=== PATIENT | female | born 1935 | race Caucasian/White ===

== ENCOUNTER 2019-02-10 19:38 | Observation (INO) | payer MEDICARE, BC ==
[2019-02-10] MEDS ORDERED: hydrALAZINE 20 MG/ML VIAL ONE (20:26)
[2019-02-10] MEDS ORDERED: Metoclopramide HCl 10 MG/2 ML VIAL ONE (21:05)
[2019-02-10] MEDS ORDERED: Meclizine HCl 25 MG TAB ONE (21:05)
--- NOTE | 2019-02-11 00:20 | PDOC.FPRHP ---
- History of Present Illness Chief Complaint: Double vision History of Present Illness: 83 y/o F with PMHx HTN, CAD, arthritis presents as a transfer from [place] ED for double vision and elevated BP's. She reports that around 1pm she had sudden onset double vision. She describes it as only when both eyes are open, but if she closes either eye she just sees single vision. She says the images are directly next to each other. She denies any blurriness. She reports an on and off headache. She reports some dizziness. She has never had anything like this before. Denies N/V, weakness, numbness, LOC. ED Course: The patient was given 10mg Hydralazine due to elevated BP's in 210s/100s. She was given reglan 10mg, meclizine 25 mg, NS 500mL. - Allergies/Adverse Reactions Allergies Allergy/AdvReac Type Severity Reaction Status Date / Time Penicillins Allergy Verified 02/11/19 00:49 Sulfa (Sulfonamide Allergy Verified 02/11/19 00:49 Antibiotics) tetracycline [Tetracycline] Allergy Verified 02/11/19 00:49 - Home Medications Medication Instructions Recorded Confirmed Type Atenolol [Tenormin] 1 tab PO DAILY 02/11/19 02/11/19 History Colchicine [Colcrys] 0.6 mg PO DAILY 02/11/19 02/11/19 History Cyclobenzaprine [Flexeril] 10 mg PO HS 02/11/19 02/11/19 History Escitalopram Oxalate 1 tab PO DAILY 02/11/19 02/11/19 History Hydrochlorothiazide 1 tab PO DAILY 02/11/19 02/11/19 History Ibandronate Sodium 150 mg PO PRN PRN 02/11/19 02/11/19 History Levalbuterol Tartrate [Xopenex HFA 2 puff INH Q4HR PRN 02/11/19 02/11/19 History Inhaler] [place]-3 Fatty Acids/Fish Oil 1 cap PO DAILY 02/11/19 02/11/19 History [[place] 3 1,000 mg Softgel] Pravastatin Sodium 1 tab PO HS 02/11/19 02/11/19 History - History PMHx: 1. CAD s/p 2 stents 2. Arthritis 3. HTN PSHx: Stents x2, Hysterectomy, x2, Bladder repair, R knee replacement FHx: Father - CAD s/p [place] Social: Denies tobacco or drug use. Reports drinking 1-2 cocktails at night PCP: none - Review of Systems General: denies: fever/chills, fatigue Eyes: reports: vision changes. denies: eye pain ENT: reports: nasal congestion. denies: rhinorrhea Respiratory: denies: cough, shortness of breath Cardiovascular: reports: edema (RLE edema after a fall on her R hip about a month ago). denies: chest pain Gastrointestinal: denies: nausea, vomiting, diarrhea, abdominal pain Genitourinary: denies: dysuria, polyuria Skin: denies: rashes, lesions Musculoskeletal: denies: pain, tenderness Neurological: denies: numbness, syncope, weakness Psychological: denies: anxiety, depression - Vital signs BP: 162/80 (was 227/98 on presentation) HR: 67 RR: 19 Tmax: 97.8 Pox: 96% on RA Wt: 72.6 kg - Physical Exam Constitutional: NAD, awake, alert and oriented HEENT: normocephalic and atraumatic, PERRLA, EOMI, conjunctiva clear, no scleral icterus, grossly normal hearing, MMM, oropharynx clear Neck: supple, FROM, no LAD Heart: RRR, normal S1/S2, no murmurs/rubs/gallops, pulses present, other (RLE trace edema to mid-tibia, no calf swelling or tenderness, no palpable cord) Abdomen: soft, non-tender, bowel sounds present, no masses/distention Musculoskeletal: normal structure, normal tone Neurological: no focal deficit, CN II-XII intact, normal sensation Skin: no rash/lesions, good turgor, capillary refill <2 seconds Heme/Lymphatic: no unusual bruising or bleeding, no purpura Psychiatric: normal mood and affect, good judgment and insight, intact recent and remote memory FMR H&P: Results - Labs Result Diagrams: 02/11/19 04:24 Lab results: Laboratory Tests 02/10/19 02/10/19 02/10/19 15:27 15:27 15:27 WBC 6.6 Hgb 12.6 Hct 38.2 Plt Count 251 PT 13.1 INR 1.0 APTT 34.1 Sodium Potassium Chloride Carbon Dioxide Anion Gap BUN Creatinine Estimated GFR (MDRD) Glucose Calcium Total Bilirubin AST ALT Alkaline Phosphatase Troponin I Less than 0.010 02/10/19 15:27 WBC Hgb Hct Plt Count PT INR APTT Sodium 138 Potassium 3.8 Chloride 98 Carbon Dioxide 27 Anion Gap 17 BUN 10 Creatinine 0.62 Estimated GFR (MDRD) Greater than 90 Glucose 86 Calcium 9.8 Total Bilirubin 0.3 AST 29 ALT 21 Alkaline Phosphatase 61 Troponin I - EKG Interpretation EKG: NSR - rate 65, age-indeterminate inferior infarct, no acute ST/T wave changes - Radiology Interpretation CT scan - head Status: image reviewed by me, report reviewed by me Additional comment: No acute intracranial process Chest x-ray Status: image reviewed by me, report reviewed by me Additional comment: Borderline cardiomegaly, biapical pleural thickening, aortic atherosclerosis FMR H&P: A/P - Problem List (1) Hypertensive urgency Current Visit: Yes Status: Acute Code(s): I16.0 - HYPERTENSIVE URGENCY (2) Diplopia Current Visit: Yes Status: Acute Code(s): H53.2 - DIPLOPIA (3) TIA (transient ischemic attack) Current Visit: Yes Status: Acute Code(s): G45.9 - TRANSIENT CEREBRAL ISCHEMIC ATTACK, UNSPECIFIED (4) Hypertension Current Visit: Yes Status: Acute Code(s): I10 - ESSENTIAL (PRIMARY) HYPERTENSION Qualifiers: Hypertension type: essential hypertension Qualified Code(s): I10 - Essential (primary) hypertension (5) CAD (coronary artery disease) Current Visit: Yes Status: Acute Code(s): I25.10 - ATHSCL HEART DISEASE OF [place] CORONARY ARTERY W/O ANG PCTRS Qualifiers: Coronary Disease-Associated Artery/Lesion type: [place] artery [place] vs. transplanted heart: [place] heart Associated angina: without angina Qualified Code(s): I25.10 - Atherosclerotic heart disease of [place] coronary artery without angina pectoris (6) Arthritis Current Visit: Yes Status: Acute Code(s): M19.90 - UNSPECIFIED OSTEOARTHRITIS, UNSPECIFIED SITE - Plan 83 y/o F presents with sudden onset diplopia 1. Diplopia, rule-out TIA vs HTN Emergency Patient presents with diplopia that was in the setting of BP's in the 220s/ 100s. Her HTN was treated with 10mg Hydralazine in the ED, but her diplopia has continued. CT brain normal. -MRI brain -Fall precautions and up with assist -Meclizine prn dizziness 2. HTN Urgency BP's initially in 220s/100s, unsure if diplopia 2/2 to this. Will treat as hypertensive urgency at this time. BP's improved to 160s/80s after 10mg IV hydralazine. Trop negative, EKG showed no acute changes. -Restart home atenalol and HCTZ -Hydralazine prn to keep SBP between 160-180. Do not want BP to decrease too much in first 24 hours for stroke protection, but would like to keep below 180 for concern that BP's might have contributed to her diplopia. 3. Concern for TIA Patient may have TIA vs CVA causing ocular symptoms. CT head negative. -Will check FLP -Brain MRI -Aspirin -Atorvastatin 40mg 4. CAD s/p 2 stents -Will start ASA -Increase statin to high intensity -Continue atenolol 5. HTN -Treat as above Code Status: Full VTE ppx: SCD's Disposition/LOS: Obs on stroke Length of stay likely less than 48 hours Addendum - Attending - Attending Attestation Date/Time: 02/11/19 0633 I personally evaluated the patient and discussed the management with Dr. Farnsworth at [facility] of admission on 02/10/2019. I agree with the History, Examination, Assessment and Plan documented above with any addition or exceptions noted below.
[2019-02-11] MEDS ORDERED: Ondansetron ODT 4 MG TAB PO PRN (00:36)
[2019-02-11] MEDS ORDERED: hydrALAZINE 20 MG/ML VIAL SLOW IVP PRN (00:36)
[2019-02-11 00:45] VITALS: BMI 31.6
[2019-02-11] MEDS ORDERED: Ondansetron ODT 4 MG TAB SL PRN (00:45)
[2019-02-11] MEDS ORDERED: Acetaminophen 325 MG TAB PO PRN (00:45)
[2019-02-11] MEDS ORDERED: Ondansetron PF 4 MG/2 ML Vial IVP PRN (00:45)
[2019-02-11] MEDS ORDERED: Meclizine HCl 12.5 MG TAB PO PRN (00:59)
[2019-02-11] MEDS: hydrALAZINE 20 MG/ML VIAL SLOW IVP PRN ×2 (01:12→09:41)
[2019-02-11 05:24] LABS: Phosphorus 3.2 mg/dL (2.3-4.7)
[2019-02-11 05:27] LABS: Anion Gap 12 mmol/L (10-20); BUN (Urea Nitrogen) 10 mg/dL (9.8-20.1); Calc. Creatinine Clearance 82 mL/min (70-130); Calcium 9.6 mg/dL (7.8-10.44); Carbon Dioxide 28 mmol/L (23-31); Cardiac Risk 2.3 (Less than 4.5); Chloride 98 mmol/L (98-107); Cholesterol 174 mg/dl (< 200 Desired); Estimated GFR-MDRD Greater than 90; Glucose 107 mg/dL (83-110); HDL Cholesterol 76 mg/dL (>60 Neg Risk); LDL Cholesterol, Calculated 79 mg/dL; Potassium 3.4 mmol/L (3.5-5.1); Sodium 135 mmol/L (136-145); Triglycerides 97 mg/dL (Less than 150)
[2019-02-11] MEDS ORDERED: Lorazepam 0.5 MG TAB PO PRN (07:33)
[2019-02-11] MEDS: Atenolol 25 MG TAB PO SCH (08:14)
[2019-02-11] MEDS: Colchicine 0.6 MG TAB PO SCH (08:14)
[2019-02-11] MEDS: Escitalopram Oxalate 10 mg Tablet PO SCH (08:15)
[2019-02-11] MEDS: Hydrochlorothiazide 25 MG TAB PO SCH (08:15)
[2019-02-11] MEDS: Aspirin 81 mg Enteric Coated Tablet PO SCH (08:15)
--- NOTE | 2019-02-11 11:22 | ULT ---
EXAM: Carotid vascular duplex with color and spectral Doppler imaging: HISTORY: Acute onset of diplopia COMPARISON: None FINDINGS: Bilateral visual plaque evidence for coronary artery vascular disease. Right ICA: PSV: 175 cm/s EDV: 58 cm/s ICA/CCA ratio: 1.6 Left ICA: PSV: 158 cm/s EDV: 39 cm/s ICA/CCA ratio: 1.0 Antegrade flow is seen in both vertebral arteries.. IMPRESSION: Evidence for moderate (50-69%) stenosis of the right and left proximal internal carotid arteries. Consider follow-up CT angiogram neck for further assessment.
--- NOTE | 2019-02-11 12:04 | MRI ---
MRI Brain WO Con: 02/11/2019 12:36 AM CLINICAL HISTORY: TIA, diplopia, CVA. COMPARISON: None. FINDINGS: Extra axial spaces: Mild CSF prominence due to volume loss. Hemorrhage: None. Ventricular system: Mild compensatory dilatation. Basal cisterns: Normal. Cerebral parenchyma: Microvascular ischemic changes. Midline shift: None. Cerebellum: Normal. Brainstem: Normal. Paranasal sinuses:Clear IMPRESSION: No acute territorial infarction or mass effect. Mild chronic microvascular ischemic disease
--- NOTE | 2019-02-11 13:16 | PDOC.FM ---
- Subjective Subjective: Patient doing well this morning. Still with diplopia, unchanged. Denies f/c/n/v/weakness/numbness/dysarthria/dysphagia - Objective MAR Reviewed: Yes Vital Signs & Weight: Vital Signs (12 hours) Temp Pulse Resp BP Pulse Ox 02/11/19 10:12 158/72 H 02/11/19 09:41 73 02/11/19 08:14 73 02/11/19 08:00 98.1 F 84 18 185/85 H 96 02/11/19 04:28 98.4 F 73 16 154/68 H 96 02/11/19 01:25 74 178/80 H Weight Weight 73.437 kg I&O: 02/10/19 02/11/19 02/12/19 06:59 06:59 06:59 Intake Total 425 Balance 425 Result Diagrams: 02/11/19 04:24 Phys Exam - Physical Examination HEENT: PERRLA Neck: no nodes, no JVD Respiratory: no wheezing, no rales, clear to auscultation bilateral Cardiovascular: RRR (3/6 ALFREDA at RUSB) Gastrointestinal: soft, non-tender, positive bowel sounds Musculoskeletal: no edema, pulses present Neurological: non-focal, normal sensation, moves all 4 limbs (CN II-XII intact and symmetric, I am unable to appreciate any nystagmus or dysconjugate gaze) Psychiatric: normal affect, A&O x 3 Dx/Plan (1) Hypertensive emergency Code(s): I16.1 - HYPERTENSIVE EMERGENCY Status: Acute (2) CAD (coronary artery disease) Code(s): I25.10 - ATHSCL HEART DISEASE OF [place] CORONARY ARTERY W/O ANG PCTRS Status: Acute Qualifiers: Coronary Disease-Associated Artery/Lesion type: [place] artery [place] vs. transplanted heart: [place] heart Associated angina: without angina Qualified Code(s): I25.10 - Atherosclerotic heart disease of [place] coronary artery without angina pectoris (3) Diplopia Code(s): H53.2 - DIPLOPIA Status: Acute - Plan Plan: HTN emergency -lower to goal over the next days pending MRI Diplopia -c/f posterior/VB stroke -MRI and angio pending -ASA, lovenox, statin -r/o other causes CAD -secondary prevention
--- NOTE | 2019-02-11 13:37 | CT ---
CTA OF THE HEAD WITH AND WITHOUT CONTRAST WITH 3D REFORMATTED IMAGING CTA OF THE NECK WITH AND WITHOUT CONTRAST WITH 3D REFORMATTED IMAGING: Date: 02/11/19 INDICATION: Dizziness with double vision. FINDINGS: CTA HEAD: No definite acute infarct, hemorrhage, or hydrocephalus is present. The septum pellucidum and third v entricle are midline. The skull and extracranial soft tissues appear within normal limits. No hemodynamically significant stenosis, occlusion, or aneurysmal formation is evident. No area of ab normal enhancement is noted. There is moderate calcification involving the carotid siphons and suprac linoid ICAs bilaterally. CTA NECK: There is 50% luminal caliber narrowing involving the proximal right internal carotid artery. There is 50% luminal caliber narrowing involving the proximal left internal carotid artery. The remaining vis ualized cervical segments are widely patent. There is moderate at least 50% narrowing involving the o rigin of the right common carotid artery from the brachiocephalic artery; however, the extent of the atherosclerotic calcification near the origin slightly limits the evaluation of the luminal caliber. The right vertebral artery is fully patent throughout its course. The left vertebral artery is fully patent throughout its course. Lung apices are clear. No enlarged lymph nodes are noted. There is a sm all hypodensity within the left thyroid gland. The parotid and submandibular glands are normal appear ing. Dental amalgam slightly limits evaluation of the oral cavity. The [place] lenses have been replac ed. The visualized aerodigestive tract appears within normal limits. There is a small subchondral cys t-like abnormality involving the odontoid. No acute osseous abnormality is evident. IMPRESSION: 1. 50% luminal caliber narrowing involving the proximal internal carotid arteries bilaterally. 2. Moderate at least 50% luminal caliber narrowing involving the origin of the right common carotid artery from the brachiocephalic artery. 3. Vertebral arteries are widely patent throughout their course. 4. No hemodynamically significant stenosis, occlusion, or aneurysmal formation seen within the intra cranial vessels. POS: JERRY
[2019-02-11] MEDS ORDERED: Iopamidol 370 76% 50 ML VIAL FS ONE (16:50)
--- NOTE | 2019-02-11 18:32 | CON ---
DATE OF CONSULTATION: 02/11/2019 CONSULTING PHYSICIAN: [facility]. IMPRESSION: Double vision, possibly secondary to myasthenia gravis. PLAN: 1. Laboratory studies as ordered. 2. Mestinon 60 mg twice a day. 3. Office followup. HISTORY OF PRESENT ILLNESS: Ms. Corado is an 83-year-old woman, who presented with acute onset of double vision. She reported some slight discomfort above the brow, but otherwise had no other complaints. She has not noticed any weakness of her extremities. She has not had any alteration of speech. She has noticed that the double vision is not consistently there. She had initial workup with CT scan and CTA, which were both unremarkable. Her carotid ultrasound shows about 50% stenosis bilaterally. Her MRI of the brain showed some minimal small vessel ischemic changes that were chronic, no acute abnormalities. PAST MEDICAL HISTORY: Hypertension and hyperlipidemia. SOCIAL HISTORY: She is . She does not smoke or drink. MEDICATIONS: Medication list was reviewed. FAMILY HISTORY: Otherwise unremarkable. REVIEW OF SYSTEMS: Ten system review of systems is otherwise negative. PHYSICAL EXAMINATION: GENERAL: She is a well-nourished elderly lady in no distress. VITAL SIGNS: Stable. She has been afebrile. HEENT: Pupils are equal and reactive. Conjunctivae clear. Oropharynx clear. NECK: Supple. No lymphadenopathy. EXTREMITIES: No cyanosis, clubbing, or edema. NEUROLOGIC: She was alert and appropriate. Her speech is fluent and clear. Cranial nerves were intact, although there seemed to be some variable esotropia of the left eye. Motor exam showed good strength in all four extremities. Sensation was intact to touch. She can stand and walk independently. There was no tremor or dysmetria present. IMAGING: Reviewed. SUMMARY: Given the presentation of painless double vision, it is unlikely to be an ischemic sixth nerve palsy. Thyroid eye disease would be a consideration as well as myasthenia gravis. I will get the lab work going and follow up with her in the office. Job ID: [id number]
[2019-02-11] MEDS ORDERED: Atorvastatin Calcium 40 MG TAB PO SCH (21:00)
[2019-02-11] MEDS ORDERED: Atorvastatin Calcium 20 MG TAB PO SCH (21:00)
[2019-02-11] MEDS ORDERED: Non-Formulary Item 1 EACH (Pravastatin Sodium [Pravastatin Sodium] 1 TAB) PO SCH (21:00)
[2019-02-11] MEDS ORDERED: Cyclobenzaprine 10 MG TAB PO SCH (21:00)
[2019-02-12 05:39] LABS: Anion Gap 12 mmol/L (10-20); BUN (Urea Nitrogen) 8 mg/dL (9.8-20.1); Calc. Creatinine Clearance 79 mL/min (70-130); Calcium 9.7 mg/dL (7.8-10.44); Carbon Dioxide 29 mmol/L (23-31); Chloride 97 mmol/L (98-107); Estimated GFR-MDRD 89; Glucose 111 mg/dL (83-110); Potassium 3.3 mmol/L (3.5-5.1); Sodium 135 mmol/L (136-145)
--- NOTE | 2019-02-12 06:03 | PDOC.FM ---
- Subjective Subjective: Linda Corado seen at bedside this morning. She is doing well, she continues to have double vision but feels like it is improving slightly. Denies any acute events overnight. Denies headaches, eye pain, chest pain, dyspnea, palpitations , n/v. She was seen by Neurology yesterday. Tests to r/o myasthenia gravis were ordered and she was started on pyridostigmine. She was instructed to follow up with Dr. Franco in 7 days. - Objective MAR Reviewed: Yes Vital Signs & Weight: Vital Signs (12 hours) Temp Pulse Resp BP Pulse Ox 02/12/19 04:02 98.8 F 84 14 156/67 H 94 L 02/11/19 23:42 98.6 F 79 12 171/79 H 96 02/11/19 20:00 98.6 F 89 12 147/66 H 94 L Weight Weight 73.437 kg I&O: 02/10/19 02/11/19 02/12/19 06:59 06:59 06:59 Intake Total 425 1400 Balance 425 1400 Result Diagrams: 02/12/19 04:24 Phys Exam - Physical Examination Constitutional: NAD HEENT: PERRLA, moist MMs, sclera anicteric variable esotropia of left eye Neck: supple, full ROM Respiratory: no wheezing, no rales, no rhonchi, clear to auscultation bilateral Cardiovascular: RRR, no significant murmur Gastrointestinal: soft, non-tender, no distention Musculoskeletal: no edema, pulses present Neurological: non-focal, normal sensation, moves all 4 limbs Psychiatric: normal affect, A&O x 3 Skin: no rash Dx/Plan (1) Diplopia Code(s): H53.2 - DIPLOPIA Status: Acute (2) Hypertensive emergency Code(s): I16.1 - HYPERTENSIVE EMERGENCY Status: Resolved (3) CAD (coronary artery disease) Code(s): I25.10 - ATHSCL HEART DISEASE OF [place] CORONARY ARTERY W/O ANG PCTRS Status: Chronic Qualifiers: Coronary Disease-Associated Artery/Lesion type: [place] artery [place] vs. transplanted heart: [place] heart Associated angina: without angina Qualified Code(s): I25.10 - Atherosclerotic heart disease of [place] coronary artery without angina pectoris (4) Hypertension Code(s): I10 - ESSENTIAL (PRIMARY) HYPERTENSION Status: Acute Qualifiers: Hypertension type: essential hypertension Qualified Code(s): I10 - Essential (primary) hypertension - Plan Plan: HTN emergency - resolved - Will slowly continue to lower BP - will need outpatient follow up closely with PCP - d/c today Diplopia - CTA showed 50% stenosis of bilateral internal carotid arteries - MRI brain negative - Neurology, Dr. Franco, consulted, appreciate recs - Ordered tests to r/o Myasthenia gravis - Will follow up with Neurology as outpatient - starting pyridostigmine per neuro CAD - secondary prevention
[2019-02-12 07:41] VITALS: BP 177/79; TEMP 98.3
[2019-02-12] MEDS: Hydrochlorothiazide 25 MG TAB PO SCH (08:05)
[2019-02-12] MEDS: Aspirin 81 mg Enteric Coated Tablet PO SCH (08:05)
[2019-02-12] MEDS: Escitalopram Oxalate 10 mg Tablet PO SCH (08:05)
[2019-02-12] MEDS: Colchicine 0.6 MG TAB PO SCH (08:05)
[2019-02-12] MEDS: Atenolol 25 MG TAB PO SCH (08:05)
--- NOTE | 2019-02-12 10:57 | PRG ---
DATE OF SERVICE: 02/12/2019 SUBJECTIVE: Ms. Corado is a very pleasant, alert, oriented 83-year-old white female, who was admitted with diplopia. She obviously has some right gaze drift with her right eye as a cause of her diplopia. Working diagnosis at this point is possible myasthenia gravis. The patient was seen by Dr. Franco, who will see her as a followup as well. Her CT showed no evidence of significant vascular occlusion. Her brain MRI showed no acute infarction or mass effect. There was mild chronic microvascular ischemic disease. In the event, she is stable and ready for discharge to follow up with Dr. Franco. Job ID: [id number]
--- NOTE | 2019-02-13 08:41 | DIS ---
DATE OF ADMISSION: 02/11/2019 DATE OF DISCHARGE: 02/12/2019 RESIDENT PHYSICIAN: Emil Thompson MD. ADMITTING ATTENDING: Dr. Jorge Fuentes. DISCHARGE ATTENDING: Dr. Morgan Villarreal. CONSULTS: Neurology, Dr. Franco on 02/11/2019. PROCEDURES: 1. CT angio of the head and neck, impression; 50% luminal caliber narrowing involving the proximal internal carotid arteries bilaterally. Moderate at least 50% luminal caliber narrowing involving the origin of the right common carotid artery from the brachiocephalic artery. Vertebral arteries are widely patent throughout their course. No hemodynamically significant stenosis, occlusion, or aneurysmal formation seen within the intracranial vessels. 2. Brain MRI from 02/11/2019, impression; no acute territorial infarction or mass effect. Mild chronic microvascular ischemic disease. 3. Carotid artery Doppler study from 02/11/2019, impression; evidence for moderate 50% to 69% stenosis of the right and left proximal internal carotid arteries. Consider followup CT angiogram of neck for further assessment. 4. Echocardiogram from 02/11/2019, summary; ejection fraction is visually estimated at 60% to 65%. Normal size left atrium. Left ventricular size is normal. Impaired relaxation compatible with diastolic dysfunction. PRIMARY DIAGNOSES: 1. Diplopia. 2. Hypertensive emergency. SECONDARY DIAGNOSES: 1. Coronary artery disease. 2. Hypertension. DISCHARGE MEDICATIONS: Resume home medications including; 1. Ibandronate sodium 150 mg p.o. p.r.n. 2. Escitalopram oxalate 10 mg p.o. daily. 3. Colchicine 0.6 mg p.o. daily. 4. Atenolol 25 mg p.o. daily. 5. Levalbuterol tartrate 2 puffs INH q.4 hours p.r.n. 6. Cyclobenzaprine 10 mg p.o. h.s. New medications include; 1. Aspirin 81 mg p.o. daily. 2. Atorvastatin 40 mg p.o. h.s. 3. Mestinon 60 mg p.o. b.i.d. HISTORY OF PRESENT ILLNESS/HOSPITAL COURSE: Linda Corado is an 83-year-old female with a past medical history of hypertension, coronary artery disease, and arthritis, who presented as a transfer from a [place] ED for double vision and elevated blood pressure. She reports that around 1:00 p.m., she had sudden onset double vision, describes it as only when both eyes are opened, but if she closed the either eye, she just used single vision. She states these images are directly next to each other. She denies any blurriness. She reports an off and on headache. Reported some dizziness. This is the first time, she has never experienced these symptoms. She denies any nausea, vomiting, weakness, numbness, or loss of consciousness. In the ED, she was given 10 mg of hydralazine due to elevated blood pressures in the 210s/100s. She was given Reglan 10 mg, meclizine 25 mg, 500 mL normal saline bolus. Initial vitals on presentation were blood pressure 227/98, which improved to 162/80 at the time of admission; heart rate of 67, respiratory rate of 19, T-max 97.8, pulse ox 96% on room air. Physical exam was normal. There are no focal deficits. Cranial nerves 2 through 12 are intact. She had normal sensation and strength. Extraocular muscles were intact. Pupils were equal, round, reactive to light and accommodation bilaterally. She had some variable esotropia in the left eye. Initial labs were white blood cell count 6.6, hemoglobin 12.6, hematocrit 38.2, platelets 251. Sodium 135, potassium 3.4, chloride 98, bicarb 28, BUN 10, creatinine 0.61, glucose of 107. EKG showed normal sinus rhythm, rate of 65. No acute ST or T wave changes. CT of the head showed no acute intracranial process. Chest x-ray showed borderline cardiomegaly, biapical pleural thickening, and aortic atherosclerosis. The patient was admitted for diplopia, rule out TIA versus hypertensive emergency. She has CT angiogram of the head and neck, brain MRI, and echo. Results were as above. The patient was restarted on home antihypertensive medications and was given p.r.n. hydralazine. Blood pressures remained mildly elevated through hospital stay, but with a goal of decreasing them slightly over time. In regards to the patient's double vision, these symptoms continued throughout her hospital stay showing maybe slight improvement per the patient. It was decided that Neurology was to be consulted. Dr. Franco saw the patient and had concern for myasthenia gravis. He ordered labs to rule out myasthenia gravis and decided to start the patient on pyridostigmine with instructions to follow up with him as an outpatient in 1 week. The patient was cleared for discharge on 02/12/2019 with instructions to follow up with Dr. Franco and establish care with primary care provider within 1 week. DISPOSITION: Stable. DISCHARGE INSTRUCTIONS: 1. Location, home. 2. Diet, heart healthy. 3. Activity, as tolerated. Activity restrictions; the patient was instructed not to drive or operate machinery with double vision. 4. Follow up with Dr. Franco in 7 days and with primary care provider in 1 week. Job ID: [id number]
--- NOTE | 2019-02-15 13:53 | EKG ---
Test Reason : Blood Pressure : / mmHG Vent. Rate : 065 BPM Atrial Rate : 065 BPM P-R Int : 174 ms QRS Dur : 084 ms QT Int : 422 ms P-R-T Axes : 049 000 023 degrees QTc Int : 438 ms Normal sinus rhythm Cannot rule out Inferior infarct , age undetermined Abnormal ECG Confirmed by PILI PONCE DO ([id number]), international editorial producer WILMER ZARAGOZA ([id number]) on 02/15/2019 1:53:20 PM Referred By: Confirmed By:PILI PONCE DO
== END 2019-02-12 11:25 | disposition home or self-care (01) ==
LOC: ERS 19:38 → 2SW 02-11 00:23
PROVIDERS: ADMIT Family Medicine; ATTEND Family Medicine
DX: H53.2 Diplopia (principal); I16.1 Hypertensive emergency; I10 Essential (primary) hypertension; I25.10 Atherosclerotic heart disease of native coronary artery without angina pectoris; M19.90 Unspecified osteoarthritis, unspecified site; Z79.899 Other long term (current) drug therapy; Z88.0 Allergy status to penicillin; Z88.1 Allergy status to other antibiotic agents; Z88.2 Allergy status to sulfonamides; Z95.5 Presence of coronary angioplasty implant and graft
CPT/HCPCS: 70496; 70498; 70551; 80048 ×2; 80061; 83519; 83735; 84100; 84439; 84443; 85652; 93005; 93306; 93880; 96365; 96366; 96375; 96376; 99285; G0378 ×2; 36415; J0360; J2765; J8499; Q9967

== ENCOUNTER 2020-10-08 10:01 | Outpatient (CLI) | payer MEDICARE ==
--- NOTE | 2020-10-08 11:06 | BD ---
BONE DENSITOMETRY USING DEXA: Date: 10/08/2020 HISTORY: Postmenopausal screening for osteoporosis. FINDINGS: Lumbar Spine: BMD (g/cm2) L1 1.058 T-Score: 0.6 Z-Score: 3.1 L2 1.129 T-Score: 0.9 Z-Score: 3.7 L3 1.278 T-Score: 1.8 Z-Score: 4.7 L4 1.022 T-Score: -0.4 Z-Score: 2.7 L1-L4 1.120 T-Score: 0.7 Z-Score: 3.5 Femoral Neck: 0.623 T-Score: -2.0 Z-Score: 0.4 Total Femur: 0.855 T-Score: -0.7 Z-Score: 1.6 The 10 year fracture risk for a major osteoporotic fracture is 30% and for a hip fracture is 20%. IMPRESSION: Osteopenia. POS: AH
== END 2020-10-08 10:02 | disposition home or self-care (01) ==
LOC: BICMAMMO 10:01
PROVIDERS: ATTEND Internal Medicine Rheumatology
DX: Z13.820 Encounter for screening for osteoporosis (principal); M85.859 Other specified disorders of bone density and structure, unspecified thigh; Z78.0 Asymptomatic menopausal state
CPT/HCPCS: 77080

== ENCOUNTER 2023-02-28 12:38 | Outpatient (CLI) | payer MEDICARE | END 2023-02-28 12:39 | disposition home or self-care (01) | LOC: BICMAMMO 12:38 | PROVIDERS: ATTEND Internal Medicine Rheumatology | DX: M81.0 Age-related osteoporosis without current pathological fracture (principal); M85.80 Other specified disorders of bone density and structure, unspecified site | CPT/HCPCS: 77080 ==

== ENCOUNTER 2023-11-29 17:12 | Inpatient (IN) | payer MEDICARE ==
[2023-11-29] MEDS ORDERED: Ondansetron PF 4 MG/2 ML Vial IVP PRN (17:20)
[2023-11-29] MEDS ORDERED: TETANUS, DIPHTHERIA TOX,ADULT (TDVAX) 0.5 ML VIAL IM ONE (17:20)
[2023-11-29] MEDS ORDERED: Dextrose 5% in Water 1,000 ML IV PRN (17:20)
[2023-11-29] MEDS ORDERED: traMADol HCl 50 MG TAB PO PRN (17:20)
[2023-11-29] MEDS ORDERED: Dextrose 50% Abboject 50 ML SYRINGE SLOW IVP PRN (17:20)
[2023-11-29] MEDS ORDERED: Glucagon 1 MG/ML KIT IM PRN (17:20)
[2023-11-29] MEDS ORDERED: Ondansetron ODT 4 MG TAB PO PRN (17:20)
[2023-11-29 18:38] VITALS: BMI 22.3
[2023-11-29] MEDS ORDERED: hydrALAZINE 20 MG/ML VIAL SLOW IVP PRN (18:52)
[2023-11-29] MEDS: Morphine 2 MG/ML VIAL SLOW IVP PRN (21:16)
[2023-11-30] MEDS: Morphine 2 MG/ML VIAL SLOW IVP PRN ×2 (01:14→05:47)
[2023-11-30 04:12] LABS: #Eosinphils 0.1 thou/uL (0.0-0.7); #Monocytes 1.2 thou/uL (0.11-0.59); #Neutrophils 4.4 thou/uL (1.40-6.50); %Basophils 0.4 % (0.0-1.0); %Eosinophils 0.8 % (0.0-10.0); %Lymphocytes 20.4 % (21.0-51.0); %Monocytes 16.4 % (0.0-10.0); %Neutrophils 61.7 % (42.0-75.0); Hematocrit 30.1 % (36.0-47.0); Hemoglobin 10.2 g/dL (12.0-16.0); Mean Corpuscular HGB CONC 33.9 g/dL (32.0-36.0); Mean Corpuscular Hemoglobin 32.8 pg (27.0-31.0); Mean Corpuscular Volume 96.8 fl (78.0-98.0); Mean Platelet Volume 10.2 fL (7.4-10.4); Platelet Count 176 10x3/uL (130-400); RBC Distribution Width 13.2 % (11.5-14.5); Red Blood Cell (RBC) Count 3.11 mill/uL (4.20-5.40); White Blood Cell (WBC) Count 7.1 10x3/uL (4.8-10.8)
[2023-11-30 04:42] LABS: ALT (SGPT) 70 U/L (8-55); AST (SGOT) 157 U/L (5-34); Albumin 3.7 g/dL (3.4-4.8); Alkaline Phosphatase 51 U/L (40-110); Anion Gap 9 mmol/L (10-20); BUN (Urea Nitrogen) 11 mg/dL (9.8-20.1); Bilirubin, Total 1.5 mg/dL (0.2-1.2); Calc. Creatinine Clearance 61 mL/min (70-130); Calcium 8.9 mg/dL (7.8-10.44); Carbon Dioxide 32 mmol/L (23-31); Chloride 96 mmol/L (98-107); Estimated GFR 89; Glucose 97 mg/dL (83-110); Potassium 3.2 mmol/L (3.5-5.1); Protein, Total 5.7 g/dL (5.8-8.1); Sodium 134 mmol/L (136-145)
[2023-11-30] MEDS ORDERED: Clindamycin/D5W 900 MG in Premix 1 BAG IVPB SCH (08:45)
[2023-11-30] MEDS ORDERED: Bupivacaine PF 0.5% 30 ML VIAL ONE (10:04)
[2023-11-30] MEDS ORDERED: Clindamycin/D5W 900 mg/50 ml Premix Bag ONE (10:10)
[2023-11-30] MEDS ORDERED: Ondansetron PF 4 MG/2 ML Vial ONE (10:13)
[2023-11-30] MEDS ORDERED: Ketamine In 0.9 % NaCl 50 MG/5 ML SYRINGE ONE (10:13)
[2023-11-30] MEDS ORDERED: Lidocaine 1% PF 5 ML VIAL ONE (10:13)
[2023-11-30] MEDS ORDERED: Dexamethasone 20 MG/5 ML VIAL ONE (10:13)
[2023-11-30] MEDS ORDERED: Lidocaine 2% 6 ML (Jelly) SYR ONE (10:14)
[2023-11-30] MEDS ORDERED: Etomidate 40 MG (20 mL) VIAL ONE (10:16)
[2023-11-30] MEDS ORDERED: ePHEDrine Sulfate 50 MG/10 ML VIAL ONE (11:03)
[2023-11-30] MEDS ORDERED: Ondansetron HCl/PF 4 MG/2 ML Vial IVP PRN (11:36)
[2023-11-30] MEDS ORDERED: Promethazine HCl 25 MG/ML VIAL IM PRN (11:36)
[2023-11-30] MEDS ORDERED: fentaNYL 50 mcg/mL 1 mL Vial ONE ×2 (11:46→12:29)
[2023-11-30] MEDS: Acetaminophen/Codeine 30-300mg Tablet PO PRN ×2 (15:15→21:41)
[2023-11-30] MEDS: Clindamycin/D5W 900 MG in Premix 1 BAG IVPB SCH (17:45)
[2023-11-30] MEDS ORDERED: Electrolyte Replacement Protocol 1 EACH FS SCH (18:00)
[2023-12-01] MEDS: Clindamycin/D5W 900 MG in Premix 1 BAG IVPB SCH (01:51)
[2023-12-01 06:31] LABS: #Monocytes 1.6 thou/uL (0.11-0.59); #Neutrophils 9.2 thou/uL (1.40-6.50); %Basophils 0.1 % (0.0-1.0); %Lymphocytes 7.8 % (21.0-51.0); %Monocytes 13.2 % (0.0-10.0); %Neutrophils 78.5 % (42.0-75.0); Hematocrit 27.6 % (36.0-47.0); Hemoglobin 9.6 g/dL (12.0-16.0); Mean Corpuscular HGB CONC 34.8 g/dL (32.0-36.0); Mean Corpuscular Hemoglobin 33.1 pg (27.0-31.0); Mean Corpuscular Volume 95.2 fl (78.0-98.0); Mean Platelet Volume 9.7 fL (7.4-10.4); Platelet Count 173 10x3/uL (130-400); RBC Distribution Width 12.9 % (11.5-14.5); White Blood Cell (WBC) Count 11.7 10x3/uL (4.8-10.8)
[2023-12-01] MEDS: Acetaminophen/Codeine 30-300mg Tablet PO PRN ×2 (06:49→18:04)
[2023-12-01 07:01] LABS: ALT (SGPT) 52 U/L (8-55); AST (SGOT) 57 U/L (5-34); Albumin 3.5 g/dL (3.4-4.8); Alkaline Phosphatase 48 U/L (40-110); Anion Gap 14 mmol/L (10-20); BUN (Urea Nitrogen) 15 mg/dL (9.8-20.1); Bilirubin, Total 0.9 mg/dL (0.2-1.2); Calc. Creatinine Clearance 59 mL/min (70-130); Calcium 8.7 mg/dL (7.8-10.44); Carbon Dioxide 29 mmol/L (23-31); Chloride 93 mmol/L (98-107); Estimated GFR 88; Globulin 2.2 g/dL (2.4-3.5); Glucose 135 mg/dL (83-110); Potassium 3.6 mmol/L (3.5-5.1); Protein, Total 5.7 g/dL (5.8-8.1); Sodium 132 mmol/L (136-145)
[2023-12-01] MEDS ORDERED: LEVALBUTEROL TARTRATE AD INH PRN (14:25)
[2023-12-01] MEDS ORDERED: Albuterol 200 PUFF (6.7GM INHALER) INH PRN (16:10)
[2023-12-01] MEDS ORDERED: diphenhydrAMINE 50 MG/ML VIAL IVP SCH (18:30)
[2023-12-01] MEDS ORDERED: diphenhydrAMINE 50 MG/ML VIAL IVP PRN (18:50)
[2023-12-01] MEDS: Rosuvastatin 20 MG TAB PO SCH (20:52)
[2023-12-01] MEDS: Acetaminophen 325 MG TAB PO PRN (21:50)
[2023-12-02] MEDS: Aspirin 81 mg Enteric Coated Tablet PO SCH (09:48)
[2023-12-02] MEDS: Fish Oil 1,000 MG CAP PO SCH (09:49)
[2023-12-02] MEDS: Colchicine 0.6 MG TAB PO SCH (09:49)
[2023-12-02] MEDS: Montelukast Sodium 10 mg Tablet PO SCH (09:49)
[2023-12-02] MEDS: Hydrochlorothiazide 25 MG TAB PO SCH (09:50)
[2023-12-02] MEDS: Escitalopram Oxalate 20 mg Tablet PO SCH (09:50)
[2023-12-02] MEDS: Amlodipine 5 MG TAB PO SCH (09:50)
[2023-12-02] MEDS: Atenolol 25 MG TAB PO SCH (09:50)
[2023-12-02] MEDS: Losartan 25 MG TAB PO SCH (09:51)
[2023-12-02] MEDS: Acetaminophen 325 MG TAB PO PRN ×3 (09:52→21:13)
[2023-12-02] MEDS: Rosuvastatin 20 MG TAB PO SCH (21:12)
[2023-12-03] MEDS ORDERED: Polyethylene Glycol 3350 17 GM Packet PO PRN (05:00)
[2023-12-03] MEDS: Atenolol 25 MG TAB PO SCH (08:41)
[2023-12-03] MEDS: Losartan 25 MG TAB PO SCH (08:41)
[2023-12-03] MEDS: Colchicine 0.6 MG TAB PO SCH (08:41)
[2023-12-03] MEDS: Aspirin 81 mg Enteric Coated Tablet PO SCH (08:42)
[2023-12-03] MEDS: Fish Oil 1,000 MG CAP PO SCH (08:42)
[2023-12-03] MEDS: Montelukast Sodium 10 mg Tablet PO SCH (08:43)
[2023-12-03] MEDS: Escitalopram Oxalate 20 mg Tablet PO SCH (08:43)
[2023-12-03] MEDS: Hydrochlorothiazide 25 MG TAB PO SCH (08:43)
[2023-12-03] MEDS: Amlodipine 5 MG TAB PO SCH (08:43)
[2023-12-03] MEDS: Acetaminophen 325 MG TAB PO PRN (08:59)
[2023-12-03] MEDS ORDERED: Senokot S 8.6-50 MG TAB PO SCH (09:00)
[2023-12-03] MEDS ORDERED: Enoxaparin 30 MG (0.3 mL) SYRINGE SC SCH (09:00)
[2023-12-03 12:24] VITALS: BP 140/69; TEMP 97.6
== END 2023-12-03 15:59 | DRG 481 ==
LOC: SURG A 17:12
PROVIDERS: ADMIT Surgery; ATTEND Surgery
PROC: 0QSB04Z Reposition Right Lower Femur with Internal Fixation Device, Open Approach (ICD-10-PCS; principal; 2023-11-30)
DX: S72.401A Unspecified fracture of lower end of right femur, initial encounter for closed fracture (principal); M97.11XA Periprosthetic fracture around internal prosthetic right knee joint, initial encounter; I25.10 Atherosclerotic heart disease of native coronary artery without angina pectoris; M81.0 Age-related osteoporosis without current pathological fracture; M19.90 Unspecified osteoarthritis, unspecified site; Z96.651 Presence of right artificial knee joint; S82.61XA Displaced fracture of lateral malleolus of right fibula, initial encounter for closed fracture; W19.XXXA Unspecified fall, initial encounter; Z88.2 Allergy status to sulfonamides; Z88.0 Allergy status to penicillin; Z88.8 Allergy status to other drugs, medicaments and biological substances; Z95.5 Presence of coronary angioplasty implant and graft; Z90.49 Acquired absence of other specified parts of digestive tract; Z98.890 Other specified postprocedural states
CPT/HCPCS: 36415; 80053; 85025; 93005; 93010; C1713; J0665; J1100; J1200; J1650; J2272; J2405; J3010; J3490

== ENCOUNTER 2025-06-22 10:15 | Outpatient (CLI) | payer MEDICARE, OTHER | END 2025-06-22 10:16 | disposition home or self-care (01) | LOC: BICRAD 10:15 | PROVIDERS: ATTEND Physician Assistant | DX: M54.2 Cervicalgia (principal); M54.6 Pain in thoracic spine; M81.0 Age-related osteoporosis without current pathological fracture; M47.812 Spondylosis without myelopathy or radiculopathy, cervical region; M47.814 Spondylosis without myelopathy or radiculopathy, thoracic region | CPT/HCPCS: 72040; 72070 ==